=== PATIENT | female | born 1935 | race Caucasian/White ===

== ENCOUNTER 2017-10-19 07:57 | Day surgery (SDC) | payer MEDICARE ==
[2017-10-19] VITALS (7 sets, daily range): BP systolic 135–169; BP diastolic 64–83; PULSE 64–77; TEMP 97.5–97.8
[~2017-10-19] VITALS: Ht 165.1 cm; Wt 78.0 kg
[2017-10-19] MEDS ORDERED: HYZAAR 50-12.1 UDTAB PO (09:14)
[2017-10-19] MEDS ORDERED: ESTRACE0.1 MG/GM (09:15)
[2017-10-19] MEDS ORDERED: GLUCOSAMINE & C1 TAB PO (09:16)
[2017-10-19] MEDS ORDERED: NIACIN 64 MG-501 TA1 PO (09:17)
[2017-10-19] MEDS ORDERED: CALCIUM 600/VIT1 CAP PO (09:18)
[2017-10-19] MEDS ORDERED: MASON NATURAL1200 MG PO (09:20)
[2017-10-19] MEDS ORDERED: NATURE'S BLEN1200 MG PO (09:21)
[2017-10-19] MEDS ORDERED: BILBERRY EXTRAC80 MG PO (09:21)
[2017-10-19] MEDS ORDERED: VITAMIN B12 781 TAB PO (09:22)
[2017-10-19] MEDS ORDERED: LUTEIN20 M1 PO (09:22)
[2017-10-19] MEDS ORDERED: ANTIVERT 12.512.5 MG PO (09:28)
[2017-10-19] MEDS ORDERED: [UNRECOGNIZED DRUG - OTHER] OP (09:29)
[2017-10-19] MEDS ORDERED: ALLEGRA ALLERG180 MG (09:32)
[2017-10-19] MEDS ORDERED: FLONASEALLERGY NS (09:33)
[2017-10-19] MEDS ORDERED: ADVIL200 MG PO (09:34)
[2017-10-19] MEDS ORDERED: NORCO 325 MG-7.1 TAB PO (11:37)
== END 2017-10-19 16:06 | disposition home or self-care (01) ==
LOC: SDCO 07:57
DX: C50.412 Malignant neoplasm of upper-outer quadrant of left female breast (principal); C77.3 Secondary and unspecified malignant neoplasm of axilla and upper limb lymph nodes; Z17.0 Estrogen receptor positive status [ER+]; I10 Essential (primary) hypertension; Z80.49 Family history of malignant neoplasm of other genital organs; M50.30 Other cervical disc degeneration, unspecified cervical region; Z68.27 Body mass index [BMI] 27.0-27.9, adult
CPT/HCPCS: J0690; J1100; J1170; J2250; J2270; J2405; J2704; J3010; J7120